=== PATIENT | male | born 1960 | race Caucasian/White ===

== ENCOUNTER 2020-08-15 10:32 | Outpatient (CLI) | payer MEDICARE, MEDICAID, SELFPAY ==
[2020-08-15 11:17] LABS: Basophils Percent Auto 0.3 % (0.2-1.2); Eosinophils Absolute Auto 0.2 K/mm3 (0-0.3); Hematocrit 41.3 % (42.0-52.0); Hemoglobin 13.5 g/dL (14.0-18.0); Immature Granulocyte Absolute 0.07 K/mm3 (0.00-0.031); Immature Granulocyte Percent A 0.6 % (0-0.5); Lymphocytes Absolute Auto 2.52 K/mm3 (0.9-3.2); Lymphocytes Percent Auto 21.1 % (18.3-44.2); Mean Corpuscular HGB Conc 32.7 g/dl (32-36); Mean Corpuscular Hemoglobin 28.8 pg (26-34); Mean Corpuscular Volume 88.1 fl (80-100); Mean Platelet Volume 10.8 fl (7.4-10.4); Monocytes Absolute Auto 0.9 K/mm3 (0.1-0.6); Monocytes Percent Auto 7.9 % (2.6-8.5); Neutrophils Absolute Auto 8.1 K/mm3 (1.3-6.7); Neutrophils Percent Auto 68.1 % (45.5-73.1); Platelet Count Result 243 k/mm3 (150-375); Red Blood Count 4.69 M/mm3 (4.6-6.20); Red Cell Distribution Width 13.1 % (11.5-14.5); White Blood Count 11.9 K/mm3 (4.5-10.0)
[2020-08-15 11:29] LABS: Alanine Aminotransferase 26 U/L (4-50); Albumin Level 4.4 g/dL (3.5-5.1); Alkaline Phosphatase 51 U/L (38-126); Anion Gap 7 mmol/L (8-16); Aspartate Amino Transferase 42 U/L (17-59); Bilirubin,Total 0.5 mg/dL (0.2-1.3); Blood Urea Nitrogen 9 mg/dL (9-20); Calcium 9.6 mg/dL (8.4-10.2); Carbon Dioxide 29 mmol/L (22-30); Chloride 101 mmol/L (98-107); Estimated Glomerular Filt Rate > 60; Glucose 121 mg/dL (75-110); Potassium 4.3 mmol/L (3.4-5.0); Sodium 137 mmol/L (137-145)
== END 2020-08-15 10:33 | disposition home or self-care (01) ==
LOC: ANHLAB 10:44
PROVIDERS: PCP Nurse Practitioner Family; Visit Provider Nurse Practitioner Family
DX: R79.89 Other specified abnormal findings of blood chemistry (principal); D72.829 Elevated white blood cell count, unspecified; R74.8 Abnormal levels of other serum enzymes; R94.6 Abnormal results of thyroid function studies
CPT/HCPCS: 36415; 80053; 84443; 85025

== ENCOUNTER 2021-08-20 09:55 | Outpatient (CLI) | payer MEDICARE, MEDICAID, SELFPAY ==
--- NOTE | ~2021-08-20 | CT_ITS ---
EXAMINATION: CT lung screening EXAM DATE: 08/20/2021 10:15 INDICATION: Personal history nicotine dependence. TECHNIQUE: Spiral low dose CT of the chest without contrast. Axial, coronal and sagittal images were reviewed. The dose-length product (DLP) for this examination was 140.79 mGy-cm. The exposure was t ailored according to patient size (auto mA exposure control), and iterative reconstruction (ASIR) was used as additional dose reduction technique. Comparison is made to prior examination from 12/07/2014. FINDINGS: 3 mm right upper lobe nodule on image 56. Calcified right upper lobe granuloma. There is m ild emphysema and hyperinflation. Calcified mediastinal lymph nodes. Tracheobronchial tree is patent . There is no mediastinal, hilar or axillary lymphadenopathy. Trace pericardial effusion. There is no pneumothorax. Heart normal in size. There is mild coronary arterial calcification, arterial sclerosis. Cholelithiasis, contracted gallbladder. Splenic and liver granulomata. There is mild tho racic spondylosis without osteoblastic or osteolytic lesions identified. IMPRESSION: Lung-RADS category 2, benign appearance or behavior (<1% chance of malignancy); recommend continued LDCT screening in 1 year. > Reviewed, dictated and finalized at location A.
== END 2021-08-20 09:56 | disposition home or self-care (01) ==
LOC: ANHIMG 09:58
PROVIDERS: PCP Nurse Practitioner Family; Visit Provider Nurse Practitioner Family
DX: Z87.891 Personal history of nicotine dependence (principal)
CPT/HCPCS: 71271

== ENCOUNTER 2024-08-30 16:48 | Outpatient (CLI) | payer MEDICARE, MEDICAID, SELFPAY ==
--- NOTE | ~2024-08-30 | CT_ITS ---
CT Scan of the Chest without Contrast: Clinical Indication: Lung cancer screening, nicotine dependence Technique: Contiguous sections were acquired throughout the chest without intravenous contrast. Dose reduction technique was used on this scan by utilizing automated exposure control and iterative recon struction technique. The dose-length product (DLP) was 164.30 mGy-cm. COMPARISON: 08/20/2021 Findings: There is no evidence of any significant mediastinal, hilar or axillary lymphadenopathy. Calcified med iastinal lymph nodes are present. There is no evidence of pleural or pericardial effusion. Calcified right upper lobe granuloma present. Stable 3 mm right upper lobe nodule centrally. Images through the upper abdomen reveal small calcified gallstones. Calcified hepatic and splenic gra nulomas are noted. Impression: Lung RADS 2: Benign appearance. 12 month follow-up screening CT advised. Reviewed, dictated and finalized at [facility]. Impression: Lung RADS 2: Benign appearance. 12 month follow-up screening CT advised.
== END 2024-08-30 16:49 | disposition home or self-care (01) ==
DX: Z12.2 Encounter for screening for malignant neoplasm of respiratory organs (principal); F17.210 Nicotine dependence, cigarettes, uncomplicated
CPT/HCPCS: 71271

== ENCOUNTER 2024-09-20 07:44 | Outpatient (CLI) | payer MEDICARE, MEDICAID, SELFPAY ==
--- NOTE | ~2024-09-20 | US_ITS ---
EXAMINATION: US aorta [facility] DATE: 09/20/2024 09:32 INDICATION: Cigarette nicotine dependence in remission TECHNIQUE: Grayscale, color Doppler, and pulsed Doppler images of the aorta and common iliac arteries were obtained. COMPARISON: None. FINDINGS: The proximal aorta measures 2.6 cm in AP diameter. The mid aorta measures 1.3 cm. The distal aorta me asures 0.9 cm. The right common iliac artery measures 8 mm. The left common iliac artery measures 9 m m. IMPRESSION: 1. Normal caliber abdominal aorta. Reviewed, dictated and finalized at location A.
== END 2024-09-20 07:45 | disposition home or self-care (01) ==
DX: F17.211 Nicotine dependence, cigarettes, in remission (principal)
CPT/HCPCS: 76706

== ENCOUNTER 2025-02-21 01:43 | Day surgery (SDC) | payer MEDICARE, MEDICAID, SELFPAY ==
[2025-02-10 15:49] VITALS: BMI 27.2
--- NOTE | 2025-02-10 16:02 | PC.NURSE ---
Spoke with patient regarding medication Xarelto. Patient verbalizes understanding that the last dose is to be taken on 02/17/2025 and the Endoscopist will instruct them when to restart after the procedure.
--- OUTSIDE RECORDS SUMMARY | 2025-02-21 01:46 | XMS_ITS | Clinical Summary ---
Author Organization [facility] [address] Address [address] [place] [address] Care Team Providers Care Causticiser Name Role Phone Waylon Chau MD Primary Care Provider [phone] Allergies Active Allergy Reactions Criticality Noted Date Comments Adhesive Tape-Silicones Rash Medium Medications aspirin 81 mg tablet take 1 tablet (81MG) by oral route every day 0 1 Active acetaminophen ER (TYLENOL ARTHRITIS) 650 mg 8 hr tablet take 1 Tablet (650MG) by oral route every 8 hours as needed 0 2 Active doxycycline (doxycycline hyclate) 100 mg capsule take 1 capsule (100MG) by oral route 2 times every day 0 3 Active gabapentin (NEURONTIN) 300 mg capsule take 2 capsule by oral route 3 times every day 0 3 Active Additional Information Patient taking differently:300 mgoral 3 times daily, Reported on 07/21/2023 cyclobenzaprin e (FLEXERIL) 10 mg tablet take 1 tablet by oral route 2 times every day 0 0 4 Active Additional Information Patient taking differently:10 mgoral Daily, Reported on 07/21/2023 metoprolol XL (TOPROL-XL) 50 mg 24 hr tablet TAKE ONE TABLET BY MOUTH ONCE DAILY 90 tablet 8 Active fenofibrate (TRIGLIDE) 160 mg tablet Take 1 tablet (160 mg total) by mouth daily Active Xarelto 2.5 mg tablet TAKE 1 TABLET BY MOUTH TWICE A DAY 180 tablet 1 3 Active atorvastatin (LIPITOR) 40 mg tablet TAKE 1 TABLET BY MOUTH EVERY DAY 90 tablet 3 4 Active lisinopriL (PRINIVIL,ZEST RIL) 40 mg tablet Take 1 tablet (40 mg total) by mouth daily 90 tablet 2 5 Active lisinopriL (PRINIVIL,ZEST RIL) 40 mg tablet TAKE 1 TABLET BY MOUTH EVERY DAY 90 tablet 3 4 01/27/20 25 Discontin ued(Reord er) Active Problems Problem Noted Date Diagnosed Date Pulmonary HTN 07/09/2022 Mixed hyperlipidemia 12/31/2021 HTN (hypertension), benign 08/04/2019 H/O acute myocardial infarction 08/04/2019 S/P coronary artery stent placement 08/04/2019 Claudication in peripheral vascular disease (CMS /HCC) 08/04/2019 Femoral-popliteal bypass graft occlusion 019 Peripheral arterial disease 08/15/2017 Chronic anticoagulation 08/15/2017 Bruit of left carotid artery 08/15/2017 Follow-up status 03/29/2016 Overview (02/27/2017): Exercise counseling Coronary artery disease invo lving [place] coronary artery of [place] heart without angina pectoris 04/19/2015 Overview (02/27/2017): Coronary arteriosclerosis in [place] artery Resolved Problems Problem Noted Date Diagnosed Date Resolved Date Dyslipidemia 08/04/2019 12/31/2021 Noncompliance 08/04/2019 01/26/2024 Surgical History Surgery Date Site/Laterality Comments CARDIAC CATHETERIZATION Medical History Medical History Date Comments Hx Other Medical Back Pain Peripheral arterial disease 08/15/2017 Chronic anticoagulation 08/15/2017 Bruit of left carotid artery 08/15/2017 Hypertension CAD (coronary artery disease) Family History Medical History Relation Name Comments Heart attack Father Myocardial Infa rction; Relation Name Status Comments Father Mother Alive Social History Tobacco Use Types Packs/Day Years Used Date Smoking Tobacco: Former Smokeless Tobacco: Never Tobacco Cessation:Counseling Given: Not Answered Alcohol Use Standard Drinks/Week Comments No 0 (1 standard drink = 0.6 oz pur e alcohol) Sex and Gender Information Value Date Recorded Sex Assigned at Not on file Legal Sex Male 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 Gender Identity Not on file Sexual Orientation Not on file Obstetrics History Last Filed Vital Signs Vital Sign Reading Time Taken Comments Blood Pressure 120/82 08/04/2024 9:48 AM CDT Pulse 83 08/04/2024 9:48 AM CDT Temperature - - Respiratory Rate - - Oxygen Saturation 98% 08/04/2024 9:48 AM CDT Inhaled Oxygen Concentration - - Weight 87.1 kg (192 lb) 08/04/2024 9:48 AM CDT Height 177.8 cm (5' 10 ) 08/04/2024 9:48 AM CDT Body Mass Index 27.55 08/04/2024 9:48 AM CDT Plan of Treatment Health Maintenance Due Date Last Done Comments Colon Cancer Screening-Colonoscopy 1959 Depression Screening 1959 Fall Risk Assessment 1959 Hepatitis C Screening 1959 Prostate Cancer Screening-PSA 1959 Hepatitis B Screening 1977 Pneumococcal vaccine 65+ (1 of 1 - PCV) 2009 Zoster Vaccine (1 of 2) 2009 Influenza Vaccine (#1) 2024 08/17/2020 Abdominal Aortic Aneurysm (AAA) Screen 2024 Well Visit 65+ 2024 DTaP/Tdap/Td Vaccine (2 - Td or Tdap) 07/29/202803/2018 Insurance MEDICARE IDUT MEDICARE IDPA MEDICARE IDPA Care Teams Causticiser Relationship Specialty Start Date End Date Waylon Chau MD [address] [place], [place] [id number] PCP - General Family Medicine 08/15/17
--- OUTSIDE RECORDS SUMMARY | 2025-02-21 01:46 | XMS_ITS | Referral Summary ---
Author Organization [facility] [address] Address [address] [place] [address] Care Team Providers Care Endodontics Dentist Name Role Phone Waylon Chau MD Primary Care Provider [phone]- [phone] Allergies Active Allergy Reactions Criticality Noted Date [...] Exercise counseling Coronary artery disease invo lving [place] coronary artery of [place] heart without angina pectoris 04/19/2015 Overview (02/27/2017): Coronary arteriosclerosis in [place] artery Resolved Problems Problem Noted Date Diagnosed Date Resolved Date Dyslipidemia 08/04/2019 12/31/2021 Noncompliance 08/04/2019 01/26/2024 Social History Tobacco Use Types Packs/Day Years Used Date Smoking Tobacco: Former Smokeless Tobacco: Never Tobacco Cessation:Counseling Given: Not Answered Alcohol Use Standard Drinks/Week Comments No 0 (1 standard drink = 0.6 oz pur e alcohol) Sex and Gender Information Value Date Recorded Sex Assigned at Not on file 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
--- OUTSIDE RECORDS SUMMARY | 2025-02-21 01:46 | XMS_ITS | CONTINUITY OF CARE DOCUMENT ---
Author Name nidhi terrell Address Unknown Organization [facility] Address [address] [place] [address] Phone [phone] Care Team Providers Care Laserist Name Role Phone Shu BENITES, Reece Unavailable JOSE A RAMIRES MD Unavailable [phone] DAVID BENITES, JAYLEN F Unavailable INSURANCE PROVIDERS Payer name Policy type / Coverage type Davey red alliance party ID [facility] Fast Dr[employer] insurance [employer] [id number]
--- OUTSIDE RECORDS SUMMARY | 2025-02-21 01:46 | XMS_ITS | Clinical Summary ---
Author Organization [email or web address] Address [address] [place] [address] Care Team Providers Care Blockers Skiver Name Role Phone Shannan Lowe DO Primary Care Provider Source Comments [email or web address],non-owned Affiliates and Associated Physician Practices is amultiple site organization consisting of ambulatory clinics and hospital sitesin [place], [place], [place] and [place]. This disclosure is being madepursuant to the Care Everywhere program and may not contain all information available regarding this patient. 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 4 Mononeuropathy of right lower extremity 04/30/20 13 Mononeuropathy of left lower extremity 3 Right foot drop 04/30/2013 Unspecified complication of cardiac and vascular prosthetic device, implant and graft, initial encounter 09/25/2012 Social History Tobacco Use Types Packs/Day Years Used Date Smoking Tobacco: Former Cigarettes Q uit: 10/15/2011 Alcohol Use Standard Drinks/Week Comments Not Asked 0 (1 standard drink = 0.6 oz pur e alcohol) Sex and Gender Information Value Date Recorded Sex Assigned at Not on file Gender Identity Not on file Sexual Orientation Not on file Last Filed Vital Signs Vital Sign Reading Time Taken Comments Blood Pressure 143/92 11/25/2014 11:20 AM PICKLING TANK OPERATOR Pulse 68 11/25/2014 11:20 AM PICKLING TANK OPERATOR Temperature 36.6 C (97.8 F) 11/25/2014 11:20 AM PICKLING TANK OPERATOR Respiratory Rate - - Oxygen Saturation 98% 09/09/2014 10:38 AM CDT Inhaled Oxygen Concentration - - Weight 86.2 kg (190 lb) 11/25/2014 11:20 AM PICKLING TANK OPERATOR Height 177.8 cm (5' 10 ) 11/25/2014 11:20 AM PICKLING TANK OPERATOR Body Mass Index 27.26 11/25/2014 11:20 AM PICKLING TANK OPERATOR Plan of Treatment Health Maintenance Due Date Last Done Comments COLOGUARD (AGES 45-75) - COL ON CA SCREENING 1959 COLON MONITORING 1959 COLONOSCOPY - COLON CA SCREENING 1959 CT COLONOGRAPHY - COLON CA SCREENING 1959 Colorectal Cancer Screening 1959 FIT - COLON CA SCREENING 1959 FLEX SIG - COLON CA SCREENING 1959 MEDICARE AWV 12 MONTHS 1959 HIV SCREENING 1974 HEPATITIS C SCREENING 07/27/1977 DTAP/TDAP/TD VACCINES (1 - Tdap) 1978 PNEUMOCOCCAL VACCINE 50+ (1 of 1 - PCV) 2009 ZOSTER VACCINE (1 of 2) 2009 COVID-19 VACCINE (1 - 2023-2 5 season) 2024 INFLUENZA VACCINE (#1) 2024 08/17/2020 AAA SCREENING 2024 DEPRESSION SCREENING 11/24/2024 LIPID TESTING 11/27/2025 11/27/2020 Respiratory Syncytial Virus (RSV) Vaccine Pt: or over 60 yrs (1 - 1-dose 75+ series) 2034 HEPATITIS B VACCINE Aged Out No longe r eligible based on patient's age to complete this topic HIB VACCINE Aged Out No longer eligi ble based on patient's age to complete this topic HPV VACCINE Aged Out No longer eligi ble based on patient's age to complete this topic MENINGOCOCCAL (Group B) VACC INE SHARED DECISION-MAKING Aged Out No longer eligibl e based on patient's age to complete this topic MENINGOCOCCAL GROUPS A/C/Y/W VACCINE Aged Out No longer eligible b ased on patient's age to complete this topic Care Teams Blockers Skiver Relationship Specialty Start Date End Date Shannan Lowe DO [address] [place] [address] PCP - General 11/08/24
--- OUTSIDE RECORDS SUMMARY | 2025-02-21 01:46 | XMS_ITS | Clinical Summary ---
Author Organization [facility] [id number] [facility] Address [address] [place] [address] Care Team Providers Care Livestock Exhibitor Name Role Phone Myrna Cho PARACHUTE SUPERVISOR Primary Care Provider [phone]- [phone] Allergies Active Allergy Reactions Criticality Noted Date Comments Adhesive Tape-Silicones Rash Medium 10/06/2012 Iodine Rash Medium 05/13/2013 Medications cyclobenzaprine (FLEXERIL) 10 mg tablet Take 1 Tablet by mouth every 8 hours as needed. 12/16/19 19 Active XARELTO 20 mg Tablet Take 1 Tablet by mouth daily. 12/16/19 19 Active simvastatin (ZOCOR) 20 mg tablet Take 1 Tablet by mouth daily at bedtime. 11/04/20 18 Active lisinopril (PRINIVIL) 20 mg tablet Take 20 mg by mouth daily. Active nitroglycerin (NITROSTAT) 0.4 mg Tablet, Sublingual Place 0.4 mg under tongue every 5 minutes as needed for Chest Pain. Active aspirin (ECOTRIN EC) 81 mg Tablet, Delayed Release (E.C.) Take 81 mg by mouth daily. Active fenofibrate nanocrystallized (TRIGLIDE) 160 mg Tablet Take 160 mg by mouth daily. Active gabapentin (NEURONTIN) 600 mg tablet Take 1 Tablet by mouth 3 times daily. 03/30/20 20 Active Narcan 4 mg/actuation [place], Non-Aerosol Administer 1 [place] in each nostril one time as needed. 03/30/20 20 Active metoprolol succinate (TOPROL XL) 50 mg Extended Release 24 hour tablet Take 50 mg by mouth daily. 07/13/20 19 Active morphine (AVINza) 30 mg Extended Release 24 hour capsule Take 30 mg by mouth 3 times daily. Active doxycycline hyclate (VIBRAMYCIN) 100 mg capsule Take 100 mg by mouth 2 times daily. Active Active Problems Patient Care Coordination No te Formatting of this note migh t be different from the original. Dr. Hussain Benavidez- Vascular Surgery Problem Noted Date Diagnosed Date Atherosclerosis with claudication of extremity 0 02/26/2019 Venous stasis dermatitis of right lower extremit y 02/26/2019 Family History Medical History Relation Name Comments Other Father PVD Other Paternal Grandfather PVD Relation Name Status Comments Father Paternal Grandfather Social History Tobacco Use Types Packs/Day Years Used Date Smoking Tobacco: Former Cigarettes Q uit: 2012 Smokeless Tobacco: Never Alcohol Use Standard Drinks/Week Comments No 0 (1 standard drink = 0.6 oz pur e alcohol) Sex and Gender Information Value Date Recorded Sex Assigned at Not on file Legal Sex Male 11:15 PM CDT Gender Identity Not on file Sexual Orientation Not on file Last Filed Vital Signs Vital Sign Reading Time Taken Comments Blood Pressure 128/76 04/26/2020 10:04 AM CDT Pulse 64 04/26/2020 10:04 AM CDT Temperature - - Respiratory Rate - - Oxygen Saturation 100% 04/26/2020 10:04 AM CDT Inhaled Oxygen Concentration - - Weight 95.3 kg (210 lb) 04/26/2020 10:04 AM CDT Height 177.8 cm (5' 10 ) 02/26/2019 10:45 AM CDT Body Mass Index 30.13 02/26/2019 10:45 AM CDT Plan of Treatment Health Maintenance Due Date Last Done Comments COLORECTAL SCREENING 2004 Colorectal Cancer Screening 2004 FIT-DNA Q 3 years 2004 FIT/FOBT Q 1 year 2004 Flex Sig/CT Colonography Q 5 years 2004 PNEUMOCOCCAL VACCINE 50+ YEARS (1 of 1 - PCV) 08/01/20 09 ZOSTER VACCINE (1 of 2) 2009 RSV VACCINE (60+ or ) (1 - Risk 60-74 years 1-dose series) 2019 INFLUENZA VACCINE (#1) 2024 DTAP/TDAP/TD VACCINES (2 - Td or Tdap) 07/29/2028 Insurance MEDICARE PART A AND B Care Teams Livestock Exhibitor Relationship Specialty Start Date End Date Myrna Cho FNP [address] [place] [id number] PCP - General Nurse Practitioner Family 01/13/19
[2025-02-21 10:19] VITALS: BP 148/85; PULSE 92; RESP 20; TEMP 35.7; O2SAT 98
[2025-02-21] MEDS: LACTATED RINGERS 1,000 ML 150 ML IV CONT (10:31)
--- NOTE | 2025-02-21 10:38 | P.PNAN_ITS ---
Anes - Initial Pre Proc Eval Procedure: Operation Date: 02/21/25 11:30 Proposed Procedures p Screening Colonoscopy - Dio Shelley MD Date/Time: 02/21/25 10:38 Surgeon: Dio Shelley MD Pre Op Diagnosis: Screening for malignant neoplasm of colon Patient Data Age: 64 Gender: M Height: 1.78 m Weight: 89.3 kg Last Vital Signs Temp 96.3 F L 02/21/25 10:19 Pulse 92 02/21/25 10:19 Resp 20 02/21/25 10:19 BP 148/85 H 02/21/25 10:19 Pulse Ox 98 02/21/25 10:19 O2 Del Method Room Air 02/21/25 10:19 Allergies Allergy/AdvReac Type Severity Reaction Status Date / Time No Known Allergies Allergy Unknown Verified 02/21/25 10:17 Home Medications ?Medication ?Instructions ?Recorded ?Confirmed ?Type aspirin 81 mg capsule 81 mg PO DAILY 02/10/25 02/21/25 History atorvastatin 40 mg tablet 40 mg PO DAILY 02/10/25 02/21/25 History fenofibrate 160 mg tablet 160 mg PO DAILY 02/10/25 02/21/25 History lisinopril 40 mg tablet 40 mg PO DAILY 02/10/25 02/21/25 History metoprolol succinate 50 mg 50 mg PO DAILY 02/10/25 02/21/25 History tablet,extended release 24 hr rivaroxaban 2.5 mg tablet (Xarelto) 2.5 mg PO BID 02/10/25 02/21/25 History Patient hx anesthesia problems: none Family hx anesthesia problems: none Results Review: All pre-operative results and documents have been reviewed as part of the pre- operative evaluation. [facility] Family History Family History Father Family history of lung cancer Other Family history of heart disease in male family member before age 55 Social History Social History Smoking status: Former smoker Tobacco type: cigarettes Smoking end date: 11/24/10 Alcohol intake: never Substance use type: does not use Living arrangements: with family Spiritual care concerns: No Anes - Eval Final PreProcedure Day of Procedure 02/21/25 10:38 Patient weight: normal Lungs: normal air movement Airway: Mallampati scale class II and special considerations (Edentulous. ) Neurological: alert and oriented Last oral intake: >/= 8 hours ASA classification: III Emergent: no Anesthetic plan: proceed Anesthesia type and monitoring: general GIVS and standard monitoring Results Review: All pre-operative results and documents have been reviewed as part of the pre-operative evaluation. HTN, hyperlipidemia, hx of PTCA/2011/hx of PVD. Ex smoker, quit 2010. Informed Consent: The patient's anesthetic plan and its attendant risks and benefits were discussed with the patient/family/POA. Questions were solicited and answers provided to the satisfaction of the patient/family/POA.
--- NOTE | 2025-02-21 11:06 | P.HP_ITS ---
H&P: HPI History of Present Illness Date/Time: 02/21/25 11:06 Chief Complaint: History of colon polyps Narrative: The patient has a history of colonic polyps, the last colonoscopy was about 5 years ago. Review of Systems Review of Systems: All systems reviewed & are unremarkable except as noted in HPI and below PMFSH Family History Family History Father Family history of lung cancer Other Family history of heart disease in male family member before age 55 Social History Social History Smoking status: Former smoker Tobacco type: cigarettes Smoking end date: 11/24/10 Alcohol intake: never Substance use type: does not use Living arrangements: with family Spiritual care concerns: No Meds Home Medications and Allergies Home Medications ?Medication ?Instructions ?Recorded ?Confirmed ?Type aspirin 81 mg capsule 81 mg PO DAILY 02/10/25 02/21/25 History atorvastatin 40 mg tablet 40 mg PO DAILY 02/10/25 02/21/25 History fenofibrate 160 mg tablet 160 mg PO DAILY 02/10/25 02/21/25 History lisinopril 40 mg tablet 40 mg PO DAILY 02/10/25 02/21/25 History metoprolol succinate 50 mg 50 mg PO DAILY 02/10/25 02/21/25 History tablet,extended release 24 hr rivaroxaban 2.5 mg tablet (Xarelto) 2.5 mg PO BID 02/10/25 02/21/25 History Allergies Allergy/AdvReac Type Severity Reaction Status Date / Time No Known Allergies Allergy Unknown Verified 02/21/25 10:17 Vital Signs Vital Signs - 24 hr 02/21/25 10:19 Temperature 96.3 F L Pulse Rate 92 Respiratory Rate 20 Blood Pressure 148/85 H Pulse Oximetry 98 Oxygen Delivery Room Air Exam Const: General: cooperative and healthy appearing Resp: Effort & Inspection: normal respiratory effort and able to speak in complete sentences Auscultation: clear to auscultation bilaterally Cardio: Rate: regular rate Rhythm: regular rhythm GI: Inspection: normal to inspection GI Palp: No No hepatosplenomegaly present Auscultation: normal bowel sounds Rectal Exam: deferred Skin: General skin exam: normal color Psych: Appearance: grossly normal Mental Status: mental status grossly n ormal Assessment and Plan Assessment and plan (1) History of colonic polyps: Code(s): Z86.0100 - Personal history of colon polyps, unspecified Status: Acute Assessment and Plan: The patient is deemed a good candidate for the procedure. Consent signed. Will proceed.
[2025-02-21] MEDS: SIMETHICONE ORAL SUSPENSION 20 MG/0.3 ML 30 ML BOTTLE 0.6 ML IRRIGATION (11:19)
[2025-02-21 11:35] VITALS: BP 107/66; PULSE 79; RESP 17; O2SAT 100
[2025-02-21 11:45] VITALS: BP 110/72; PULSE 82; RESP 17; O2SAT 100
[2025-02-21 11:55] VITALS: BP 133/82; PULSE 79; RESP 18; O2SAT 100
== END 2025-02-21 12:00 | disposition home or self-care (01) ==
PROVIDERS: Visit Provider Internal Medicine Gastroenterology
PROC: 0DJD8ZZ Inspection of Lower Intestinal Tract, Via Natural or Artificial Opening Endoscopic (ICD-10-PCS; CPT 45378; principal; 2025-02-21 11:30)
DX: Z12.11 Encounter for screening for malignant neoplasm of colon (principal); D12.0 Benign neoplasm of cecum; D12.3 Benign neoplasm of transverse colon; K64.8 Other hemorrhoids; Z79.82 Long term (current) use of aspirin; Z79.01 Long term (current) use of anticoagulants; Z87.891 Personal history of nicotine dependence; Z80.1 Family history of malignant neoplasm of trachea, bronchus and lung; Z82.49 Family history of ischemic heart disease and other diseases of the circulatory system
CPT/HCPCS: 45385; 88305; J2003; J2704; J7120

== ENCOUNTER 2025-11-08 11:03 | Outpatient (CLI) | payer MEDICARE, SELFPAY ==
--- NOTE | ~2025-11-08 | CT_ITS ---
EXAMINATION:CT lung screening DATE: 11/08/2025 11:27 INDICATION: Screening TECHNIQUE: Computed tomography (CT) of the chest was performed without intravenous contrast. The dose-length product (DLP) was 130.10 mGy-cm. COMPARISON: August 30, 2024 FINDINGS: No new nodules or masses seen. Scattered calcified granulomas. Heart and great vessels appear stable. Coronary calcifications. Granular moderate noted in the liver and spleen in the upper abdomen. Cholelithiasis. No gross acute process seen in the chest, visualized upper abdomen or extrathoracic soft tissues. Degenerative changes throughout the thoracic spine. IMPRESSION: 1. No new nodules or masses. Lung RADS 2. Correlate with follow-up low-dose lung cancer screening chest CT in 12 months. 2. Other chronic findings as above. Reviewed, dictated and finalized at location A. [facility] IMPRESSION: 1. No new nodules or masses. Lung RADS 2. Correlate with follow-up low-dose ariel g cancer screening chest CT in 12 months. 2. Other chronic findings as above.
--- OUTSIDE RECORDS SUMMARY | 2025-11-08 13:29 | XMS_ITS | Clinical Summary ---
Author Organization [facility] [employer] Address [address] [place] [address] Care Team Providers Care Toe Lining Closer Name Role Phone Shannan Lowe DO Primary Care Provider [phone] Source Comments [facility] [employer],non-owned Affiliates and Associated Physician Practices is amultiple site organization consisting of ambulatory clinics and hospital sitesin [place], [place], [place] and [place]. This disclosure is being madepursuant to the Care Everywhere program and may not contain all information available regarding this patient. 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, implant and graft, initial encounter 09/25/2012 Social History Tobacco Use Types Packs/Day Years Used Date Smoking Tobacco: Former Cigarettes 1 Q uit: 10/15/2011 Alcohol Use Standard Drinks/Week Comments Not Asked 0 (1 standard drink = 0.6 oz pur e alcohol) Sex and Gender Information Value Date Recorded Sex Assigned at Not on file Legal Sex Male 6:08 PM REHAB TRAINER Gender Identity Not on file Sexual Orientation Not on file Last Filed Vital Signs Vital Sign Reading Time Taken Comments Blood Pressure 143/92 11/25/2014 11:20 AM REHAB TRAINER Pulse 68 11/25/2014 11:20 AM REHAB TRAINER Temperature 36.6 C (97.8 F) 11/25/2014 11:20 AM REHAB TRAINER Respiratory Rate - - Oxygen Saturation 98% 09/09/2014 10:38 AM CDT Inhaled Oxygen Concentration - - Weight 86.2 kg (190 lb) 11/25/2014 11:20 AM REHAB TRAINER Height 177.8 cm (5' 10) 11/25/2014 11:20 AM REHAB TRAINER Body Mass Index 27.26 11/25/2014 11:20 AM REHAB TRAINER Plan of Treatment Health Maintenance Due Date Last Done Comments COLOGUARD (AGES 45-75) - COL ON CA SCREENING 1959 COLON MONITORING 1959 COLONOSCOPY - COLON CA SCREENING 1959 CT COLONOGRAPHY - COLON CA SCREENING 1959 Colorectal Cancer Screening 1959 FIT - COLON CA SCREENING 1959 FLEX SIG - COLON CA SCREENING 1959 MEDICARE AWV 12 MONTHS 1959 HEPATITIS C SCREENING 07/27/1977 DTAP/TDAP/TD VACCINES (1 - Tdap) 1978 PNEUMOCOCCAL VACCINE 50+ (1 of 1 - PCV) 2009 Respiratory Syncytial Virus (RSV) Vaccine Pt: or over 60 yrs (1 - Risk 50-74 years 1-dose series) 2009 ZOSTER VACCINE (1 of 2) 2009 AAA SCREENING 2024 DEPRESSION SCREENING 11/24/2024 COVID-19 VACCINE (1 - 2024-2 6 season) 2025 INFLUENZA VACCINE (#1) 2025 08/17/2020 LIPID TESTING 11/27/2025 11/27/2020 HEPATITIS B VACCINE Aged Out No longe [...] on patient's age to complete this topic Insurance MEDICARE MEDICAID [facility] SELF PAY NO INSURANCE Member Subscriber Plan / Payer (Ef fective for All Dates) Name:Lucius Pillai Member ID:Not on file Relation to Subscriber:Not on file Name:LUCIUS PILLAI Subscriber ID:Not on file (Home) Address: [address] [place] [id number] Payer ID:Not on file Group ID:Not on file Type:Self Pay Address: [place], [place] Care Teams Toe Lining Closer Relationship Specialty Start Date End Date Shannan Lowe DO [address] [place] [address] PCP - General 11/08/24
--- OUTSIDE RECORDS SUMMARY | 2025-11-08 13:30 | XMS_ITS | Clinical Summary ---
Author Organization [facility] [address] Address [address] [place] [address] Care Team Providers Care Parboiler Name Role Phone Waylon Chau MD Primary Care Provider [phone] Allergies Active Allergy Reactions Criticality Noted Date Comments Adhesive Tape-Silicones Rash Medium Medications aspirin 81 mg tablet take 1 tablet (81MG) by oral route every day 0 11/05/20 11 Active acetaminophen ER (TYLENOL ARTHRITIS) 650 mg 8 hr tablet take 1 Tablet (650MG) by oral route every 8 hours as needed 0 09/02/20 12 Active doxycycline (doxycycline hyclate) 100 mg capsule take 1 capsule (100MG) by oral route 2 times every day 0 12/09/19 13 Active gabapentin (NEURONTIN) 300 mg capsule take 2 capsule by oral route 3 times every day 0 06/16/20 13 Active Additional Information Patient taking differently:300 mgoral 3 times daily, Reported on 08/10/2025 cyclobenzaprin e (FLEXERIL) 10 mg tablet take 1 tablet by oral route 2 times every day 0 0 06/22/20 14 Active Additional Information Patient taking differently:10 mgoral Daily, Reported on 08/10/2025 metoprolol XL (TOPROL-XL) 50 mg 24 hr tablet TAKE ONE TABLET BY MOUTH ONCE DAILY 90 tablet 07/14/20 18 Active Xarelto 2.5 mg tablet TAKE 1 TABLET BY MOUTH TWICE A DAY 180 tablet 1 03/03/20 23 Active atorvastatin (LIPITOR) 80 mg tablet Take 1 tablet (80 mg total) by mouth nightly 90 tablet 6 08/10/20 25 Active lisinopriL (PRINIVIL,ZEST RIL) 40 mg tablet TAKE 1 TABLET BY MOUTH EVERY DAY 90 tablet 10/27/20 25 Active lisinopriL (PRINIVIL,ZEST RIL) 40 mg tablet Take 1 tablet (40 mg total) by mouth daily 90 tablet 2 01/27/20 25 025 Discontinued Active Problems Problem Noted Date Diagnosed Date [...] Exercise counseling Coronary artery disease invo lving [place] coronary artery of [place] heart without angina pectoris 04/19/2015 Overview (02/27/2017): Coronary arteriosclerosis in [place] artery Resolved Problems Problem Noted Date Diagnosed Date Resolved Date Dyslipidemia 08/04/2019 12/31/2021 Noncompliance 08/04/2019 01/26/2024 Encounters Date Type Department Care Team Description 08/10/2025 10:00 AM CDT Office Visit [facility] [address] [place] [address] Harish Brewer MD Coronary artery disease involving [place] coronary artery of [place] heart without angina pectoris (Primary Dx); History of ST elevation myocardial infarction; S/P angioplasty with stent; Primary hypertension; Right bundle branch block (RBBB) with left anterior fascicular block (LAFB); History of tobacco abuse from Last 3 Months Surgical History Surgery Date Site/Laterality Comments CARDIAC [...] on file Legal Sex Male 10:15 AM APPLICATIONS ENGINEER Gender Identity Not on file Sexual Orientation Not on file Last Filed Vital Signs Vital Sign Reading Time Taken Comments Blood Pressure 124/80 08/10/2025 9:54 AM CDT Pulse 67 08/10/2025 9:54 AM CDT Temperature - - Respiratory Rate - - Oxygen Saturation 97% 08/10/2025 9:54 AM CDT Inhaled Oxygen Concentration - - Weight 93.2 kg (205 lb 6.4 oz) 08/10/2025 9:54 A M CDT Height 177.8 cm (5' 10) 08/10/2025 9:54 AM CDT Body Mass Index 29.47 08/10/2025 9:54 AM CDT Plan of Treatment Health Maintenance Due Date Last Done Comments Colon Cancer Screening-Colonoscopy 1959 Depression Screening 1959 Fall Risk Assessment 1959 Hepatitis C Screening 1959 Prostate Cancer Screening-PSA 1959 Hepatitis B Screening 1977 Pneumococcal vaccine 65+ (1 of 1 - PCV) 2009 Zoster Vaccine (1 of 2) 2009 Abdominal Aortic Aneurysm (AAA) Screen 2024 Well Visit 65+ 2024 Influenza Vaccine (#1) 2025 08/17/2020 DTaP/Tdap/Td Vaccine (2 - Td or Tdap) 07/29/202803/2018 Procedures Procedure Name Priority Date/Time Associated Diagnosis Comments POCT LIPID PANEL Routine 08/10/2025 11:1 2 AM CDT Coronary artery disease involving [place] coronary artery of [place] heart without angina pectoris from Last 3 Months Results * POCT lipid panel (08/10/2025 11:12 AM CDT) Cholesterol, POC 157 <200 MG/DL HDL, POC 46 >=40 mg/dL Triglycerides, POC 100 <=149 mg/dL LDL Cholesterol POC 90 <=129 mg/dL Chol/HDL Ratio, POC 2.0 NONE Non-HDL Cholesterol, POC 110 NONE mg/dL Cholesterol Total, POC 157 30 - 199 mg/dL Capillary blood 08/10/2025 1 1:12 AM CDT Harish Brewer MD POINT OF CARE TEST ORDERABLES Fi nal Result from Last 3 Months Insurance MEDICARE [facility] MEDICARE IDPA MEDICARE IDPA Care Teams Parboiler Relationship Specialty Start Date End Date Waylon Chau MD [address] [place] [address] PCP - General Family Medicine 08/15/17
== END 2025-11-08 11:04 | disposition home or self-care (01) ==
PROVIDERS: Visit Provider Nurse Practitioner
DX: R91.1 Solitary pulmonary nodule (principal); F17.211 Nicotine dependence, cigarettes, in remission
CPT/HCPCS: 71271